=== PATIENT | female | born 1995 | race Caucasian/White ===

== ENCOUNTER 2023-03-02 15:01 | Outpatient (AMB) | payer OTHER, SELFPAY ==
--- NOTE | 2023-03-02 16:18 | A.SPINEOV_ITS ---
Intake Intake Visit Reasons: Back pain Intake Note: Miss Baker is here today to f/u back pain. 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 We did not see anything that would warrant a neurosurgical intervention at this time. The patient was called and informed of this and recommended to follow-up with pain management for further pain control. Code(s): M54.16 - Radiculopathy, lumbar region Plan Jane is a 27-year-old female comes in as a follow-up patient. She is s/p lumbar laminectomy performed in 2019. Her records are available via [facility]. She states that she came in today for a follow-up appointment after completing her thoracic MRI. Previously seen at [facility] by our service. She states that her low back pain with radicular symptoms into her legs is her primary complaint at this time. She has radicular symptoms in a classic S1/L5 distribution with bilateral radiation from her low back down the posterior aspect of her thighs, down past the gastrocnemius, to the bottom of her foot. She also endorses right-sided lateral lower extremity radiation of pain with associated numbness. When asked what her primary concerns were she stated that her low Back/radicular symptoms are significantly worse than her midback pain. For this reason she was asked to bring in a copy of her lumbar MRI, which she states she had completed in April of 2022. Her thoracic MRI was reviewed and shows mild-moderate posterior disc herniations at the levels of T6-7, T7-8, and T8-9. The only symptoms matching this dermatomal distribution that she has in the aforementioned affected areas of thoracic spine is some nonspecific right-sided truncal dullness in sensation when compared to left. The patient was informed that we will review her thoracic (can view in [facility] E[facility]) and lumbar MRI (Not available in [employer]) together after she drops off her lumbar MRI does so that we can make a better decision as to how to address her symptoms. I will review this imaging with Dr. De La Torre / COLTON Reyes when she drops off the disc. PHYSICAL EXAM: Sensation: Some disclosed R sided dullness to palpation of T5-T10 dermatomes. Some disclosed right-sided numbness in an L5 distribution. CN: II-XII grossly intact. Strength Testing Upper Extremities: - Deltoid 5/5 right 5/5 left - Biceps 5/5 right 5/5 left - Triceps 5/5 right 5/5 left - Wrist Ext 5/5 right 5/5 left - Wrist Flex 5/5 right 5/5 left - Hand application integration engineer 5/5 right 5/5 left - Interossei 5/5 right 5/5 left Strength Testing Lower Extremities: - Hip flexion 5/5 right 5/5 left - Knee extension 5/5 right 5/5 left - Dorsiflexion 5/5 right 5/5 left - Plantar flex 5/5 right 5/5 left - EHL 5/5 right 5/5 left Pain limited due to weakness Reflexes: - Biceps Right - 2+ Left - 2+ - Triceps Right - 2+ Left - 2+ - Patellar Right - 2+ Left - 2+ - Achilles Right - 2+ Left - 2+ - Plantar Right - 2+ Left - 2+ (-) Babinski (-) Weathers?s sign (-) Clonus (-) Straight leg raise Total amount of time spent in this visit was 30 minutes in discussion of symptoms, MRI Thoracic spine imaging results, physical exam, and subsequent plan of care Aren De La Torre MD,PhD [facility] Coding Level of Care Code Est Pt Level 4 (61736) Diagnoses Lumbar radiculopathy M54.16
== END 2023-03-02 16:39 | disposition home or self-care (01) ==
PROVIDERS: Visit Provider Physician Assistant
DX: M54.16 Radiculopathy, lumbar region (principal)
CPT/HCPCS: 99214

== ENCOUNTER → 2023-03-02 15:01 | Outpatient (BNVA) | payer OTHER, SELFPAY | PROVIDERS: Visit Provider Physician Assistant ==